=== PATIENT | male | born 1945 | race Caucasian/White ===

== ENCOUNTER 2016-12-13 04:25 | Emergency (ER) | payer OTHER, MEDICARE ==
[~2016-12-13] VITALS: Ht 182.9 cm; Wt 99.8 kg
[~2016-12-13 04:25] MED LIST: ALLOPURINOL300 MG PO; ASPIRIN81 M1 PO; ATORVASTATIN CA40 MG PO; DILAUDID2 MG PO; E GEMS PO; LISINOPRIL40 MG PO; MULTIVITAMIN1 TAB PO; VITAB121000 PO
[2016-12-13] MEDS ORDERED: LISINOPRIL40 M1 PO (04:59)
[2016-12-13] MEDS ORDERED: ALLOPURINOL300 M1 PO (04:59)
[2016-12-13] MEDS ORDERED: ATORVASTATIN CA40 M1 PO (05:00)
--- NOTE | 2016-12-13 05:08 | ED GI/GU/ABDOMINAL COMPLAINT ---
History of Present Illness General Chief Complaint: Male Genitourinary Problems Stated Complaint: ? KIDNEY STONE PER PT HX OF SAME Source: patient Exam Limitations: no limitations Vital Signs & Intake/Output Vital Signs & Intake/Output Vital Signs Date Time Temp Pulse Resp B/P Pulse O2 O2 Flow FiO2 Ox Delivery Rate 12/13 0458 Room Air 12/13 0438 97.4 88 18 148/77 95 Room Air Allergies Coded Allergies: pork derived (porcine) (UPSET STOMACH, SEVERE DIARRHEA 01/09/16) Reconcile Medications Allopurinol 300 MG TABLET 1 TAB PO DAILY GOUT (Reported) Allopurinol 300 MG TAB 1 TAB PO DAILY GOUT (Reported) Aspirin 81 MG CTB 1 TAB PO DAILY HEART HEALTH (Reported) Atorvastatin Calcium 40 MG TABLET 1 TAB PO DAILY HYPERLIPIDEMIA (Reported) Atorvastatin Calcium (Lipitor) 40 MG TAB 1 TAB PO DAILY CHOLESTEROL (Reported ) Cyanocobalamin (Vitamin B-12) 1,000 MCG TAB 1 TAB PO DAILY V (Reported) HYDROMORPHONE HCL (Dilaudid) 2 MG TAB 1 TAB PO 4 TIMES/DAY PAIN CONTROL ( Reported) Lisinopril 40 MG TABLET 1 TAB PO DAILY HTN (Reported) Lisinopril 40 MG TAB 1 TAB PO DAILY HEART (Reported) Multivitamin (Multiple Vitamins) 1 TAB TAB 1 TAB PO DAILY SUPPLEMENT ( Reported) Vitamin E (E-Gems) 800 IU SGL 1 CAP PO DAILY SUPPLEMENT (Reported) Triage Note: PT TO TRIAGE C/O R FLANK/ R GROIN PAIN AND DIFFICULTY URINATING. PT HAS HX OF KIDNEY STONES. Triage Nurses Notes Reviewed? yes HPI: Patient presents for evaluation of right flank pain that began about 2:00 this morning. Onset was sudden while at home. Pain has been constant severe and sharp since onset. The pain radiates to the right inguinal region. The pain is similar to prior kidney stones that he has had. Patient denies any associated fever, chills, hematuria or dysuria. He does refer a weak urine stream. Past History Travel History Traveled to [place] past 21 day No Medical History Any Pertinent Medical History? see below for history Neurological: vertigo EENT: NONE Cardiovascular: hypertension, hyperlipidemia Respiratory: NONE Gastrointestinal: NONE Hepatic: HIGH LIVER ENZYMES Renal: KIDNEY STONES Musculoskeletal: gout, osteoarthritis, RIGHT SHOULDER Psychiatric: NONE Endocrine: NONE Blood Disorders: NONE Cancer(s): NONE PRINCIPAL SYSTEMS ENGINEER/Reproductive: NONE History of MRSA: No History of VRE: No History of CDIFF: No Surgical History Surgical History: non-contributory Psychosocial History Who do you live with Spouse What is your primary language Faroese Tobacco Use: Never used ETOH Use: denies use Family History Hx Contributory? No Review of Systems Review of Systems Constitutional: Reports: no symptoms. EENTM: Reports: no symptoms. Respiratory: Reports: no symptoms. Cardiovascular: Reports: no symptoms. GI: Reports: no symptoms. Genitourinary: Reports: see HPI. Musculoskeletal: Reports: no symptoms. Skin: Reports: no symptoms. Neurological/Psychological: Reports: no symptoms. Hematologic/Endocrine: Reports: no symptoms. Immunologic/Allergic: Reports: no symptoms. All Other Systems: Reviewed and Negative Physical Exam Physical Exam Gastrointestinal: see below Comments: Gen.: Well-nourished, well-developed, no acute respiratory distress. Head: Normocephalic, atraumatic. Eyes: Normal inspection bilaterally Ears: Normal inspection bilaterally Nose: Normal inspection Throat/mouth : Moist mucosa Neck: Supple, full range of motion, no goiter Heart: Regular rate and rhythm, no murmurs rubs or gallops Lungs: Clear to auscultation bilaterally with normal air entry Chest: Nontender Back: Normal range of motion Abdomen: Soft, nontender, nondistended, normal bowel sounds Extremities: Normal range of motion grossly, equal radial pulses, no cyanosis clubbing or edema Neurologic: Cranial nerves grossly intact, speech is clear Skin: warm and dry Psychiatric: Calm, cooperative, no apparent delusions or hallucinations Core Measures ACS in differential dx? No Severe Sepsis Present: No Septic Shock Present: No Progress Differential Diagnosis: biliary colic, prostatitis, ureterolithiasis, UTI/pyelo Plan of Care: Orders Procedure Date/time Status CBC WITHOUT DIFFERENTIAL 12/13 0510 Complete BASIC METABOLIC PANEL 12/13 0510 Complete URINALYSIS 12/13 0453 Complete Laboratory Tests 12/13/16 0535: Anion Gap 10, Estimated GFR > 60, BUN/Creatinine Ratio 18.9, Glucose 127 H, Calcium 9.4, CBC w Diff NO MAN DIFF REQ, RBC 4.24 L, MCV 92.7, MCH 31.5 H, RDW 13.9, MPV 10.0, Gran % 71.9, Lymphocytes % 16.9 L, Monocytes % 7.6, Eosinophils % 3.1, Basophils % 0.5, Absolute Granulocytes 5.5, Absolute Lymphocytes 1.3, Absolute Monocytes 0.6, Absolute Eosinophils 0.2, Absolute Basophils 0, PUBS MCHC 34.0 12/13/16 0455: Urinalysis LIGHT H, Urine Color YEL, Urine Clarity CLEAR, Urine pH 6.0, Ur Specific [place] 1.025, Urine Protein NEG, Urine Ketones NEG, Urine Nitrite NEG, Urine Bilirubin NEG, Urine Urobilinogen 0.2, Ur Leukocyte Esterase NEG, Ur Microscopic SEDIMENT EXAMINED, Urine RBC 10-15 H, Urine WBC 1-3 H, Ur Epithelial Cells FEW, Urine Mucus MANY H, Urine Hemoglobin LARGE H, Urine Glucose NEG Diagnostic Imaging: Discussed w/RAD: CT Scan. Radiology Impression: PATIENT: ROBSON GALLARDO PRESENT AGE: 71 PATIENT ACCOUNT NO: [id number] : 47 LOCATION: [facility] ORDERING PHYSICIAN: SEGUNDO RICKS MD SERVICE DATE: 12/13/16 EXAM TYPE: CAT - CT ABD & PELVIS W/O IV CONTRAS EXAMINATION: CT ABDOMEN AND PELVIS WITHOUT CONTRAST CLINICAL INFORMATION: Right flank pain. COMPARISON: CT scan abdomen pelvis 08/14. Renal ultrasound 10/07/2016 TECHNIQUE: Multidetector volumetric imaging was performed from the superior aspect of the liver through the pubic symphysis. Sagittal and coronal reformatted images were obtained on the technologist's workstation. DLP: 1320.46 mGy-cm FINDINGS: LUNG BASES: The visualized lung bases are unremarkable. LIVER, GALLBLADDER, AND BILIARY TREE: Diffuse low attenuation of liver due to fatty change. No focal liver lesion or intrahepatic bile duct dilatation. Several small densely calcified gallstones in the neck of the gallbladder. Largest measuring about 7 mm. Node edema of the gallbladder wall. No pericholecystic fluid. No dilatation of the bile ducts. The extrahepatic CBD measures 6 mm. No calcified stone within the duct. PANCREAS: Unremarkable. SPLEEN: Unremarkable. ADRENAL GLANDS: Unremarkable. KIDNEYS AND URETERS: Multiple stones in the kidneys. These are small nonobstructive calculi. Stones range in size from 1 to about 5 mm. In the right kidney there are approximately 5 stones. In the left kidney there are 3 stones. There is mild hydronephrosis of the right kidney with dilatation of renal pelvis calyces and proximal right ureter. This is due to an obstructing 5 mm stone in the proximal right ureter at about the level of the L4-L5 disc space. Also a 1 cm cortical cyst at the lower pole left kidney. BLADDER: Unremarkable. GASTROINTESTINAL TRACT: The small and large bowel are unremarkable. The appendix is unremarkable. ABDOMINAL WALL: No significant hernia is appreciated. LYMPH NODES: Normal. VASCULAR: Atherosclerotic vascular wall calcifications of aorta and iliac arteries without aneurysm. PELVIC VISCERA: Prostate measures 5.4 cm transverse. There are calcifications within the prostate. OSSEOUS STRUCTURES: Degenerative change of the spine with multilevel endplate spurs and facet joint arthrosis and disc height narrowing. IMPRESSION: 1. Hydronephrosis of the right kidney due to an obstructing 5 mm stone in the mid proximal right ureter. Bilateral nonobstructive renal stones. 2. Cholelithiasis. DICTATED BY: NOY ANDRADE MD DATE/TIME DICTATED:12/13/16552 FASHION EDITOR:GOVIND DATE/TIME TRANSCRIBED:12/13/16552 CONFIDENTIAL, DO NOT COPY WITHOUT APPROPRIATE AUTHORIZATION. <Electronically signed in Other Vendor System> SIGNED BY: NOY ANDRADE MD 12/13/16 0605 Initial ED EKG: none Comments: 12/13/2016 6:17:41 AM I have updated Robson on his test results. He is comfortable at this point and feels capable of returning home. He'll contact Dr. Carter today for follow-up appointment. Departure Departure Disposition: HOME OR SELF CARE Condition: Stable Clinical Impression Primary Impression: Renal colic on right side Referrals: JUSTIN CABRAL,ANTONINA Power (PCP/Family) DAVIS CARTER MD Additional Instructions: Toradol and Percocet as prescribed for kidney stone pain. Follow-up with Dr. Carter today for reevaluation of your 5 mm right mid ureteral kidney stone. Notify your primary care doctor of this emergency department visit and treatment plan. Return if any concerns or sudden worsening. Please note that there might be incidental findings in your evaluation that are unrelated to the current emergency department visit. Please notify your primary care doctor about this emergency department visit in order to obtain and review all of the testing performed so that these incidental findings can be monitored as needed. If you had an x-ray performed, please understand that some fractures may not be seen on the initial set of x-rays. If your symptoms persist you might need a repeat set of x-rays to check for such a fracture. If you had a laceration evaluated, please understand that foreign bodies such as glass or wood may not be visible to the naked eye or on plain x-rays. If the wound becomes red, swollen, increasingly more painful or if there is any drainage from the wound, please have it reevaluated by a physician for the possibility of a retained foreign body. Thank you for choosing the [facility] for your care. It was a pleasure to serve you today. Segundo Ricks M.D. [facility] Departure Forms: Customer Survey General Discharge Information Prescriptions: Current Visit Scripts Oxycodone HCl/Acetaminophen (Percocet 5-325 MG Tablet) 1 TAB PO Q6P PRN pain #20 TAB Tamsulosin HCl (Flomax) 1 CAP PO DAILY #7 CAP Ketorolac Tromethamine 1 TAB PO Q6P PRN KIDNEY STONE PAIN #16 TAB PATIENT RECEIVED iv tORADOL IN THE EMERGENCY DEPARTMENT
[2016-12-13 05:45] LABS: ABSOLUTE BASOPHIL COUNT 0 /CUMM (0.0-0.2); ABSOLUTE EOSINOPHIL COUNT 0.2 /CUMM (0.0-0.7); ABSOLUTE GRANULOCYTE CT 5.5 /CUMM (1.4-6.5); ABSOLUTE LYMPH COUNT 1.3 /CUMM (1.2-3.4); ABSOLUTE MONOCYTE COUNT 0.6 /CUMM (0.10-0.60); BASOPHIL % 0.5 % (0.0-2.0); EOSINOPHIL % 3.1 % (0-5); GRANULOCYTE % 71.9 % (42.2-75.2); HEMATOCRIT 39.3 % (42-52); MEAN CORPUSCULAR HGB 31.5 PG (27.0-31.0); MEAN CORPUSCULAR VOLUME 92.7 FL (80.0-94.0); PLATELET COUNT 145 /CUMM (130-400); RBC DISTRIBUTION WIDTH 13.9 % (11.5-14.5); RED BLOOD CELL CT 4.24 /CUMM (4.70-6.10); WHITE BLOOD CELL COUNT 7.7 /CUMM (4.8-10.8)
--- NOTE | 2016-12-13 06:05 | CT SCAN REPORT ---
EXAMINATION: CT ABDOMEN AND PELVIS WITHOUT CONTRAST CLINICAL INFORMATION: Right flank pain. COMPARISON: CT scan abdomen pelvis 08/14/2015. Renal ultrasound 10/07/2016 TECHNIQUE: Multidetector volumetric imaging was performed from the superior aspect of the liver through the pubic symphysis. Sagittal and coronal reformatted images were obtained on the technologist's workstation. DLP: 1320.46 mGy-cm FINDINGS: LUNG BASES: The visualized lung bases are unremarkable. LIVER, GALLBLADDER, AND BILIARY TREE: Diffuse low attenuation of liver due to fatty change. No focal liver lesion or intrahepatic bile duct dilatation. Several small densely calcified gallstones in the neck of the gallbladder. Largest measuring about 7 mm. Node edema of the gallbladder wall. No pericholecystic fluid. No dilatation of the bile ducts. The extrahepatic CBD measures 6 mm. No calcified stone within the duct. PANCREAS: Unremarkable. SPLEEN: Unremarkable. ADRENAL GLANDS: Unremarkable. KIDNEYS AND URETERS: Multiple stones in the kidneys. These are small nonobstructive calculi. Stones range in size from 1 to about 5 mm. In the right kidney there are approximately 5 stones. In the left kidney there are 3 stones. There is mild hydronephrosis of the right kidney with dilatation of renal pelvis calyces and proximal right ureter. This is due to an obstructing 5 mm stone in the proximal right ureter at about the level of the L4-L5 disc space. Also a 1 cm cortical cyst at the lower pole left kidney. BLADDER: Unremarkable. GASTROINTESTINAL TRACT: The small and large bowel are unremarkable. The appendix is unremarkable. ABDOMINAL WALL: No significant hernia is appreciated. LYMPH NODES: Normal. VASCULAR: Atherosclerotic vascular wall calcifications of aorta and iliac arteries without aneurysm. PELVIC VISCERA: Prostate measures 5.4 cm transverse. There are calcifications within the prostate. OSSEOUS STRUCTURES: Degenerative change of the spine with multilevel endplate spurs and facet joint arthrosis and disc height narrowing. IMPRESSION: 1. Hydronephrosis of the right kidney due to an obstructing 5 mm stone in the mid proximal right ureter. Bilateral nonobstructive renal stones. 2. Cholelithiasis.
[2016-12-13] MEDS ORDERED: PERCOCET 5-3251 EACH PO (06:20)
[2016-12-13] MEDS ORDERED: FLOMAX0.4 M1 PO (06:20)
[2016-12-13] MEDS ORDERED: KETOROLAC TROME10 M1 PO (06:21)
[2016-12-13 06:39] VITALS: BP 150/82
== END 2016-12-13 06:41 ==
LOC: ERH 04:25
PROVIDERS: Emergency Medicine
DX: N23 Unspecified renal colic (principal); I10 Essential (primary) hypertension
CPT/HCPCS: 74176; 81001; J1885

== ENCOUNTER → 2016-12-20 | Day surgery (SDC) | payer OTHER, MEDICARE ==
[~2016-12-20] MED LIST changes: +ALLOPURINOL300 M1 PO; +ATORVASTATIN CA40 M1 PO; +FLOMAX0.4 M1 PO; +KETOROLAC TROME10 M1 PO; +LISINOPRIL40 M1 PO; +PERCOCET 5-3251 EACH PO
--- NOTE | 2016-12-20 11:48 | Operative Report ---
Operative/Inv Procedure Report Surgery Date: 12/20/16 Name of Procedure: right eswl/fluoroscopy Pre-Operative Diagnosis: bilateral stones. Post-Operative Diagnosis: same Estimated Blood Loss: none Surgeon/Automotive Repair Technician: DAVIS RODRIGUEZ MD Anesthesia: moderate sedation Complications: none Operative/Procedure Note Note: The patient was taken to the operating room and placed on the ESWL table in supine position. The patient's right flank was positioned over the table cut- out overlying the dome of the treatment head. Timeout was performed, with the patient awake, in order to confirm the correct identity, side, anesthesia, procedure and other pertinent kenton-operative information. The patient was then anesthesized. Once the patient was adequately sedated, fluoroscopy, as well as Renal ultrasound was used to locate the right renal stone. Renal US was used to confirm the placement of the stone, and measured it to be approximately 7 mm in size at the right renal pelvis. Additionally, renal U/S revealed no hydronephrosis, and no solid tumor. With the stone's position optimized, using AP and oblique fluoroscopy views, the right renal E.S.W.L. was initiated at low energy level. After noting the patient's tolerance to the shockwaves, the intensitiy was ramped up to maximum level. At the end of the procedure, the composition of the right renal stone had changed significantly, indicating the shattering of the renal stone. Of note, a total of 2500 shockwaves were delivered to the stones. The patient tolerated the ESWL procedure well, was awakened, then taken to recovery in satisfactory condition via stretcher. The patient was dischared home with pain medications, diet orders, and intructions to catch fragments by straining the urine. The patient to to have follow-up renal ultrasound and KUB in 1 to 2 weeks, prior to follow-up visit in my office. Discharge Disposition: Same Day Admissions CC: DAVIS RODRIGUEZ MD
== END ==
LOC: STS 07:00
DX: N20.0 Calculus of kidney (principal); I10 Essential (primary) hypertension; M10.9 Gout, unspecified
CPT/HCPCS: J2250

== ENCOUNTER → 2016-12-27 | Day surgery (SDC) | payer OTHER, MEDICARE ==
[~2016-12-27] VITALS: Ht 182.9 cm; Wt 99.8 kg
--- NOTE | 2016-12-27 11:59 | Operative Report ---
Operative/Inv Procedure Report Surgery Date: 12/27/16 Name of Procedure: left renal eswl/fluoroscopy Pre-Operative Diagnosis: left renal stone 7mm Post-Operative Diagnosis: same Estimated Blood Loss: none Surgeon/Patient Support Tech: DAVIS RODRIGUEZ MD Anesthesia: moderate sedation Complications: none Operative/Procedure Note Note: The patient was taken to the operating room and placed on the ESWL table in supine position. With the patient awake and participating, timeout was performed to confirm correct identity, procedure, laterality, anesthesia, and other pertinent kenton-operative information. After adequate anesthesia, the patient was positioned so that the patient's left flank was positioned over the table cut-out, overlying the dome of the treatment head. Once the patient was adequately sedated, fluoroscopy, as well as Renal ultrasound was used to locate the LEFT renal stone. Renal US confirmed the presence of the stone which measured it to be approximately 7 mm upper pole stone. The stone was faintly visible with fluoroscopy. Renal US revealed, no hydronephrosis, and no solid tumor, and presence of the stone. The position of the stone was optimized by using fluoroscopy in AP and oblique views;placing the stone within the ESWL c- arm crosshairs. Once the stone's position was optimized, the LEFT renal E.S.W.L. was initiated at low energy level. After noting the patient's tolerance to the shockwaves, the intensitiy was ramped up to maximum level. At the end of the procedure, the left renal stone had dissintegrated. Of note, a total of 2500 shockwaves were delivered to the stone. The patient was then frog legged, draped and prepped in the usual surgical fashion. A 22 [place] cystoscope sheath with 30 angle lens was inserted without difficulty. Upon entering the bladder, the bladder was noted to be free of tumor free of stone. The cystoscope was then removed. The patient tolerated the ESWL procedures well, was awakened, then taken to recovery in satisfactory condition via stretcher. The patient was dischared home with pain medications, diet orders, and intructions to catch fragments by straining the urine. The patient to to have follow-up renal ultrasound and KUB in 1 to 2 weeks, prior to follow-up visit in my office. He will then proceed with metabolic stone work-up. Discharge Disposition: Same Day Admissions CC: DAVIS RODRIGUEZ MD
== END ==
LOC: STS 03:35
DX: N20.0 Calculus of kidney (principal); Z87.442 Personal history of urinary calculi; I10 Essential (primary) hypertension
CPT/HCPCS: J2250